=== PATIENT | male | born 1980 | race Caucasian/White ===

== ENCOUNTER 2024-01-09 09:35 | Emergency (ER) | payer OTHER, SELFPAY ==
[2024-01-09 09:41] VITALS: BP 162/98; PULSE 78; RESP 18; TEMP 36.9; O2SAT 97; BMI 41.1
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
[2024-01-09] MEDS: OxyCODONE/APAP 5-325 TABLET 2 TAB PO (09:57)
--- OUTSIDE RECORDS SUMMARY | 2024-01-09 10:17 | XMS_ITS | Encounter Summary ---
Author Organization [facility] Address [address] [place] [address] Care Team Providers Care Network Control Operator Name Role Phone Connie Alvarado APRN PRODUCT DEVELOPMENT SCIENTIST Primary Care Prov ider Connie Alvarado APRN PRODUCT DEVELOPMENT SCIENTIST Unavailable + Connie Alvarado APRN PRODUCT DEVELOPMENT SCIENTIST Unavailable + Seth Sharp MD Unavailable + Connie Alvarado APRN PRODUCT DEVELOPMENT SCIENTIST Unavailable + Seth Sharp MD Unavailable + Jeannine Hyatt Unavailable Unavailable Connie Alvarado APRN PRODUCT DEVELOPMENT SCIENTIST Unavailable + Connie Alvarado APRN PRODUCT DEVELOPMENT SCIENTIST Unavailable + Encounter Details Date Type Department Care Team (Latest Contact Info) Description 10/09/2016 Historic Results Social History Tobacco Use Types Packs/Day Years Used Date Smoking Tobacco: Some Days Smokeless Tobacco: Never Alcohol Use Standard Drinks/Week Comments Yes 0 (1 standard drink = 0.6 oz pur e alcohol) socially Sex and Gender Information Value Date Recorded Sex Assigned at Not on file 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 Gender Identity Not on file Sexual Orientation Not on file documented as of this encounter Plan of Treatment Not on file documented as of this encounter Visit Diagnoses Not on filedocumented in this encounter Additional Health Concerns Assessment Noted Time PHQ-9 Depression Total Score: 14 017 7:17 AM CDT documented as of this encounter Care Teams Network Control Operator Relationship Specialty Start Date End Date Connie Alvarado APRN PRODUCT DEVELOPMENT SCIENTIST PCP - General Nurse Practitioner - Family 01/29/17 Connie Alvarado APRN PRODUCT DEVELOPMENT SCIENTIST [address] [place] [address] PCP - Assigned PCP 10/19/16 05/18/18 Connie Alvarado APRN PRODUCT DEVELOPMENT SCIENTIST [address] [place] [address] Assigned PCP 10/19/16 07/09/19 [place] [address] [place] [address] Assigned PCP 07/10/19 07/23/19 Connie Alvarado APRN PRODUCT DEVELOPMENT SCIENTIST [address] [place] [address] Assigned PCP 07/24/19 08/27/19 [place] [address] [place] [address] Assigned PCP 08/28/19 12/24/19 Jeannine Hyatt Personal Advocate & Liaison (PAL) 12/21/19 03/06/20 Connie Alvarado APRN PRODUCT DEVELOPMENT SCIENTIST [address] [place] [address] Assigned PCP 12/25/19 02/28/22 Connie Alvarado APRN PRODUCT DEVELOPMENT SCIENTIST [address] [place] [address] Assigned PCP 05/10/22 12/19/22 documented as of this encounter
--- OUTSIDE RECORDS SUMMARY | 2024-01-09 10:17 | XMS_ITS | Referral Summary ---
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, unspecified laterality Take 1 capsule (50 mg) by mouth 2 times daily (with meals) 60 capsule 1 0 Active Additional Information Patient not taking.Reported on 07/20/2019 mirtazapine (REMERON) 15 MG tabletIndication s:WALI (generalized anxiety disorder) TAKE ONE TABLET BY MOUTH AT BEDTIME 90 tablet 1 Active escitalopram (LEXAPRO) 20 MG tabletIndication s:Major depressive disorder, single episode, moderate (H),WALI (generalized anxiety disorder) Take 1 tablet (20 mg) by mouth daily NEEDS APPT FOR ADDITIONAL REFILLS 30 tablet 1 Active Active Problems Problem Noted Date Diagnosed Date 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 0 07/06/2019 Morbid obesity 06/07/2017 Major depressive disorder, single episode, moder ate 11/19/2016 Overview (11/19/2016): Quality WALI (generalized anxiety disorder) 11/19/2016 Overview (11/19/2016): quality CARDIOVASCULAR SCREENING; LDL GOAL LESS THAN 160 03/14/2014 Immunizations Name Administration Dates Next Due Historical DTP/aP 06/14/1986, 4,07/14/1982,02/13/1982, 2 MMR 10/11/1993,06/15/1983 Polio, Unspecified 06/14/1986,06/15/1983, 982,1981 TDAP (Adacel,Boostrix) 12/23/2006 Td (Adult), Adsorbed 12/23/2006,07/15/1995 Social History Tobacco Use Types Packs/Day Years Used Date Smoking Tobacco: Former Smokeless Tobacco: Never Alcohol Use Standard Drinks/Week Comments Yes 0 (1 standard drink = 0.6 oz pur e alcohol) socially PHQ-2 Answer Date Recorded PHQ-2 Score 3 12/20/2019 Adolescent Education Answer Date Record ed Getting School Help Needed Not on file 12/20 Sex and Gender Information Value Date Recorded Sex Assigned at Not on file 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 Gender Identity Not on file Sexual Orientation Not on file Last Filed Vital Signs Vital Sign Reading Time Taken Comments Blood Pressure 132/88 08/24/2018 6:16 PM CDT Pulse 68 08/24/2018 6:16 PM CDT Temperature 36.7 ??C (98.1 ??F) 08/24/2018 6:16 PM CD T Respiratory Rate 16 08/24/2018 6:16 PM CDT Oxygen Saturation 97% 08/24/2018 6:16 PM CDT Inhaled Oxygen Concentration - - Weight 140.6 kg (310 lb) 08/24/2018 6:16 PM CDT Height 180.3 cm (5' 11) 08/24/2018 6:16 PM CDT Body Mass Index 43.24 08/24/2018 6:16 PM CDT Plan of Treatment Not on file Insurance MEDICA CHOICE [facility] [employer] OTHER Care Teams Faculty Member Relationship Specialty Start Date End Date Connie Alvarado APRN PRIVATE BRANCH EXCHANGE SERVICE ADVISOR PCP - General Nurse Practitioner - Family 01/29/17
--- OUTSIDE RECORDS SUMMARY | 2024-01-09 10:17 | XMS_ITS | Clinical Summary ---
Author Organization [facility] Address [address] [place] [address] Care Team Providers Care Roller Coaster Engineer Name Role Phone Christiano Connie Lentz APRN LEI MAKER Primary Care Prov ider Allergies No known [...] TDAP (Adacel,Boostrix) 12/23/2006 Td (Adult), Adsorbed 12/23/2006,07/15/1995 Family History Medical History Relation Comments Breast Cancer Maternal Grandfather Heart Disease Maternal Grandfather Breast Cancer Maternal Grandmother Depression Mother Alcohol/Drug Paternal Grandfather Depression Sister Bipolar Relation Status Comments Father Alive Maternal Grandfather Maternal Grandmother Mother Alive Paternal Grandfather Paternal Grandmother Sister Son 1 Alive Son 2 Alive Social History Tobacco Use Types Packs/Day Years [...] on file Legal Sex Male 3:05 AM UPPER DOUBLER Gender Identity Not on file Sexual Orientation [...] Treatment Not on file Insurance MEDICA CHOICE [facility] [employer] OTHER Care Teams Roller Coaster Engineer Relationship Specialty Start Date End Date Connie Alvarado APRN LEI MAKER PCP - General Nurse Practitioner - Family 01/29/17
--- OUTSIDE RECORDS SUMMARY | 2024-01-09 10:17 | XMS_ITS | Encounter Summary ---
Author Organization [facility] Address [address] [place] [address]. [place] [address] Care Team Providers Care Diesel Dragline Operator Name Role Phone Connie Alvarado APRN RIPSAWYER Primary Care Prov ider Connie Alvarado APRN RIPSAWYER Unavailable + Connie Alvarado APRN RIPSAWYER Unavailable + Reason for Visit * Reason Comments Medication Refill Encounter Details Date Type Department Care Team (Late st Contact Info) Description 08/02/[address] [address] Connie Alvarado APRN RIPSAWYER [address] [place], [place] [id number] Medication Refill Social History Tobacco Use Types Packs/Day Years Used Date Smoking Tobacco: Former Smokeless Tobacco: Never Alcohol Use Standard Drinks/Week Comments Yes 0 (1 standard drink = 0.6 oz pur e alcohol) socially PHQ-2 Answer Date Recorded PHQ-2 Score 3 12/20/2019 Sex and Gender Information Value Date Recorded Sex Assigned at Not on file Legal Sex Male 3:05 AM METAL CUT OFF SAW OPERATOR Gender Identity Not on file Sexual Orientation Not on file documented as of this encounter Miscellaneous Notes * Telephone Encounter - Miles Valiente - 08/30/2020 10:03 AM CDT Mailed out letter * Telephone Encounter - Jodi Bansal - 08/23/2020 9:45 AM CDT LVM for pt to schedule OV Jennifer Bansal- [place] Teacher * Telephone Encounter - Connie Alvarado APRN CNP - 08/22/2020 3:01 PM CDT Erica given. Needs appt for additional refills. Needs in person; has not been in clinic since 2019. Connie Alvarado CNP * Telephone Encounter - Markel Frost RN - 08/22/2020 1:31 PM CDT Routing refill request to provider for review/approval because: Labs out of range: PHQ-9 Patient needs to be seen because: Due for f/u w/ PCP Markel Puente RN * Telephone Encounter - Miles Valiente - 08/14/2020 7:38 AM CDT Routing back to rm refills, no appt made * Telephone Encounter - Miles Valiente - 08/07/2020 7:27 AM CDT Mailed out letter * Telephone Encounter - Miles Valiente - 08/02/2020 3:22 PM CDT lvm to call clinic, patient will need to schedule appt for med refills. * Telephone Encounter - Margy Jalloh RN - 08/02/2020 2:15 PM CDT Patient due for a med-check. Will forward to TC's to assist with scheduling. Margy Jalloh RN on 08/02/2020 at 2:16 PM documented in this encounter Plan of Treatment Not on file documented as of this encounter Visit Diagnoses Diagnosis Major depressive disorder, single episode, moderate (H) Major depressive disorder, single episode, moderate WALI (generalized anxiety disorder) Generalized anxiety disorder documented in this encounter Additional Health Concerns Assessment Noted Time PHQ-9 Depression Total Score: 6 12/20/19 2:37 PM CDT documented as of this encounter Care Teams Diesel Dragline Operator Relationship Specialty Start Date End Date Connie Alvarado APRN RIPSAWYER PCP - General Nurse Practitioner - Family 01/29/17 Connie Alvarado APRN RIPSAWYER [address] [place] [address] Assigned PCP 12/25/19 02/28/22 Connie Alvarado APRN RIPSAWYER [address] [place] [place] [address] Assigned PCP 05/10/22 12/19/22 documented as of this encounter
--- OUTSIDE RECORDS SUMMARY | 2024-01-09 10:17 | XMS_ITS | Encounter Summary ---
Author Organization [facility] Address [address] [place] [address]. [place] [address] Care Team Providers Care Winch Operator Name Role Phone Connie Alvarado APRN DECAY CONTROL OPERATOR Primary Care Prov ider Connie Alvaraod APRN DECAY CONTROL OPERATOR Unavailable + Connie Alvarado APRN DECAY CONTROL OPERATOR Unavailable + Reason for Visit * Reason Comments Medication Refill Encounter Details Date Type Department Care Team (Late st Contact Info) Description 08/19/[address] [place] [address] [address] Connie Alvarado APRN DECAY CONTROL OPERATOR [address] [place], [place] [phone] Medication Refill Social History Tobacco Use Types Packs/Day Years Used Date Smoking Tobacco: Former Smokeless Tobacco: Never Alcohol Use Standard Drinks/Week Comments Yes 0 (1 standard drink = 0.6 oz pur e alcohol) socially PHQ-2 Answer Date Recorded PHQ-2 Score 3 12/20/2019 Sex and Gender Information Value Date Recorded Sex Assigned at Not on file 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 Margy Jalloh RN on 08/21/2020 at 11:00 AM documented in this encounter Plan of Treatment Not on file documented as of this encounter Visit Diagnoses Diagnosis WALI (generalized anxiety disorder) Generalized anxiety disorder documented in this encounter Additional Health Concerns Assessment Noted Time PHQ-9 Depression Total Score: 6 12/20/19 20 2:37 PM CDT documented as of this encounter Care Teams Winch Operator Relationship Specialty Start Date End Date Connie Alvarado APRN DECAY CONTROL OPERATOR PCP - General Nurse Practitioner - Family 01/29/17 Connie Alvarado APRN DECAY CONTROL OPERATOR [address] [place] [place] [address] Assigned PCP 12/25/19 02/28/22 Connie Alvarado APRN DECAY CONTROL OPERATOR [address] [address] [place] [address] Assigned PCP 05/10/22 12/19/22 documented as of this encounter
--- OUTSIDE RECORDS SUMMARY | 2024-01-09 10:17 | XMS_ITS | Clinical Summary ---
Author Organization [facility] Address [place], [place] [address] Care Team Providers Care Mid Level Project Manager Name Role Phone Zahra Horvath RN Student Primary Care Provider Unavailable Allergies No known active allergies Medications Medication Sig Dispensed Refills Start Date End Date Status multivitamin (MVI) tablet Take 1 tablet by mouth once daily. Active escitalopram oxalate (LEXAPRO) 20 mg tablet TAKE 1 TABLET (20 MG) BY MOUTH DAILY 05/05/2017 Active Active Problems Problem Noted Date Diagnosed Date Depression 01/07/2018 Lumbar degenerative disc disease 05/21/2011 GERD (gastroesophageal reflux disease) 2 Obesity, unspecified 05/21/2011 Resolved Problems Problem Noted Date Diagnosed Date Resolved Date Acute respiratory insufficiency 05/21/2011 01/07/2018 Social History Tobacco Use Types Packs/Day Years Used Date Smoking Tobacco: Former Cigarettes 0.3 15 Smokeless Tobacco: Current Chew Tobacco Cessation:Counseling Given: No Comments:declined Alcohol Use Standard Drinks/Week Comments Yes 0 (1 standard drink = 0.6 oz pur e alcohol) Social Connections Answer Date Recorded Frequency of Communication with Friends and Fami ly Not on file 03/16/2021 Financial Resource Strain Answer Date R ecorded Difficulty of Paying Living Expenses Not on file 03/16/2021 Difficulty of Paying Living Expenses Not on file 03/16/2021 Sex and Gender Information Value Date Recorded Sex Assigned at Not on file Gender Identity Not on file Sexual Orientation Not on file Obstetrics History Last Filed Vital Signs Vital Sign Reading Time Taken Comments Blood Pressure 120/80 11/03/2019 12:43 PM CDT Pulse 60 11/03/2019 12:43 PM CDT Temperature 36.6 ??C (97.9 ??F) 11/03/2019 1 2:43 PM CDT Respiratory Rate 16 05/24/2011 8:00 AM MANAGER REPORT Oxygen Saturation 97% 02/22/2019 11: 12 AM MANAGER REPORT room air, at rest Inhaled Oxygen Concentration - - Weight 139.3 kg (307 lb 1.6 oz) 11/03/2019 12:43 PM CDT Height 179.1 cm (5' 10.5) 11/03/2019 1 2:43 PM CDT Body Mass Index 43.44 11/03/2019 12:43 PM CDT Plan of Treatment Health Maintenance Due Date Last Done Comments Tdap 1992 Depression screening for age 12+ 1993 HIV for age 15-65 1996 Hepatitis C screening for ag e 18-79 09/22/1999 Tetanus booster 2001 Lipids for age 35-44 2016 BMI (ht and wt on same day) for age 18+ 11/02/2020 11/03/2019, 02/22/2019, 01/07/2018 COVID-19 vaccine series (2023- season) 2023 Influenza for age 9-49 11/15/2023 Pneumococcal series for age 6-64 Aged Out No longer eligible b ased on patient's age to complete this topic Medical Devices Implanted Type Area Lard Tub Washer Device Identifier Shelf Expiration Date Model / Serial / Lot [id number] tty Progenix Dbm 5cc [[id number]] Implanted:Qty: 1 on 05/21/2011 at [facility] Explanted:at [facility] (Quantity not on file) Spine SPINAL GRAFT 10/15/2012 [id number]# / [id number] / Screw Ti Darin 6.5x50mm - [id number] Implanted:Qty: 2 on 05/21/2011 at [facility] N/A: Spine SOFAMOR DANEK [id number] / / Staple Darin Caudal Ti - [id number] Implanted:Qty: 1 on 05/21/2011 at [facility] N/A: Spine SOFAMOR DANEK [id number]# / / Staple Darin Rostral Ti - [id number] Implanted:Qty: 1 on 05/21/2011 at [facility] N/A: Spine SOFAMOR DANEK [id number]# / / Screw Ti Darin 6.5x45mm - [id number] Implanted:Qty: 2 on 05/21/2011 at [facility] N/A: Spine SOFAMOR DANEK [id number]# / / Plate Thoracic 3.0cm Ti - [id number] Implanted:Qty: 1 on 05/21/2011 at [facility] N/A: Spine SOFAMOR DANEK [id number]# / / Lock Nut Ti - [id number] Implanted:Qty: 2 on 05/21/2011 at [facility] N/A: Spine SOFAMOR DANEK [id number]# / / Kit Infuse Sm - [id number] Implanted:Qty: 1 on 05/21/2011 at [facility] Spine SOFAMOR DANEK [id number]# / / [id number] Perimeter Lg 10mm 8 Deg Add-On - [id number] Implanted:Qty: 1 on 05/21/2011 at [facility] Spine SOFAMOR DANEK [id number]# / / [id number] Directives * Full Code (Latest Code Status on File) Date Activated Date Inactivated Comments 05/21/2011 2:39 PM 05/25/2011 4:40 PM * Full Code Date Activated Date Inactivated Comments 05/21/2011 6:24 AM 05/21/2011 2:39 PM Care Teams Mid Level Project Manager Relationship Specialty Start Date End Date Zahra Horvath RN Student PCP - General Registered Nurse 05/19/11
--- OUTSIDE RECORDS SUMMARY | 2024-01-09 10:17 | XMS_ITS | Encounter Summary ---
Author Organization [facility] Address [address] [place] [address]. [place] [address] Care Team Providers Care Parachute Accessories Attacher Name Role Phone Connie Alvarado APRN FARM EQUIPMENT OPERATOR Primary Care Prov ider Seth Sharp MD Unavailable [phone] Jeannine Hyatt Unavailable Unavailable Connie Alvarado APRN FARM EQUIPMENT OPERATOR Unavailable + Connie Alvarado APRN FARM EQUIPMENT OPERATOR Unavailable + Reason for Visit * Reason Comments Medication Refill Encounter Details Date Type Department Care Team (Late st Contact Info) Description 11/02/[address] [phone] [place] [address] [place] [address] Medication Refill Social History Tobacco Use Types Packs/Day Years Used Date Smoking Tobacco: Former Smokeless Tobacco: Never Alcohol Use Standard Drinks/Week Comments Yes 0 (1 standard drink = 0.6 oz pur e alcohol) socially PHQ-2 Answer Date Recorded PHQ-2 Score 0 07/20/2019 Sex and Gender Information Value Date Recorded Sex Assigned at Not on file 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 He will call back to schedule. Summer Piedra MA * Telephone Encounter - Connie Alvarado APRN CNP - 11/03/2019 10:59 AM CDT remeron was added as adjunct in June; he is due for follow up. Sending in 1 month supply; please call to help schedule video appt for recheck. Connie Alvarado CNP * Telephone Encounter - Kati Sullivan RN - 11/02/2019 3:58 PM CDT Routing refill request to provider for review/approval because: PHQ-9 > 4. PHQ 08/24/2018 04/26/2019 07/06/2019 PHQ-9 Total Score 8 1 9 Q9: Thoughts of better off /self-harm past 2 weeks Not at all Not at all Not at all WALI-7 SCORE 08/24/2018 04/26/2019 07/06/2019 Total Score 12 4 14 Kati Sullivan RN documented in this encounter Plan of Treatment Not on file documented as of this encounter Visit Diagnoses Diagnosis Major depressive disorder, single episode, moderate (H) Major depressive disorder, single episode, moderate WALI (generalized anxiety disorder) Generalized anxiety disorder documented in this encounter Additional Health Concerns Assessment Noted Time PHQ-9 Depression Total Score: 9 07/06/19 20 1:40 PM CDT documented as of this encounter Care Teams Parachute Accessories Attacher Relationship Specialty Start Date End Date Connie Alvarado APRN CNP PCP - General Nurse Practitioner - Family 01/29/17 [place] [address] [address] [address] Assigned PCP 08/28/19 12/24/19 Jeannine Hyatt Personal Advocate & Liaison (PAL) 12/21/19 03/06/20 Connie Alvarado APRN FARM EQUIPMENT OPERATOR [address] [address] [address] Assigned PCP 12/25/19 02/28/22 Connie Alvarado APRN FARM EQUIPMENT OPERATOR [address] [address] [address] Assigned PCP 05/10/22 12/19/22 documented as of this encounter
--- OUTSIDE RECORDS SUMMARY | 2024-01-09 10:17 | XMS_ITS | Encounter Summary ---
Author Organization [facility] Address [address] [place] [address]. [place] [address] Care Team Providers Care Jewish History Professor Name Role Phone Connie Alvarado APRN RN INTERNSHIP Primary Care Prov ider Connie Alvarado APRN RN INTERNSHIP Unavailable + Seth Sharp MD Unavailable [phone] Connie Alvarado APRN RN INTERNSHIP Unavailable + Seth Sharp MD Unavailable [phone] Jeannine Hyatt Unavailable Unavailable Connie Alvarado APRN RN INTERNSHIP Unavailable + Connie Alvarado APRN RN INTERNSHIP Unavailable + Reason for Visit * Reason Comments Medication Refill Encounter Details Date Type Department Care Team (Late st Contact Info) Description 04/11/[address] [facility] [id number] [place] [address], [address] [place] [address] [place] [address] [place] [address] Medication Refill Social History Tobacco Use Types Packs/Day Years Used Date Smoking Tobacco: Former Smokeless Tobacco: Never Alcohol Use Standard Drinks/Week Comments Yes 0 (1 standard drink = 0.6 oz pur e alcohol) socially PHQ-2 Answer Date Recorded PHQ-2 Score 1 03/23/2018 Sex and Gender Information Value Date Recorded Sex Assigned at Not on file Legal Sex Male 3:05 AM PLANT OPERATIONS MANAGER Gender Identity Not on file Sexual Orientation Not on file documented as of this encounter Miscellaneous Notes * Telephone Encounter - Hilary Morrow MD - 04/15/2019 3:35 PM PLANT OPERATIONS MANAGER Will refill T OPERATIONS MANAGER * Telephone Encounter - Brittni Marie - 04/14/2019 11:14 AM CST Patient has made phone visit with Dr Sharp for med check, wondering though if he is able to get refill, as really cannot be with out it Brittni Marie/ Yardage Control Operator Forming T OPERATIONS MANAGER * Telephone Encounter - Hilary Morrow MD - 04/14/2019 11:05 AM PLANT OPERATIONS MANAGER A phone visit or in person visit are his options T OPERATIONS MANAGER * Telephone Encounter - Brittni Marie - 04/14/2019 9:28 AM CST Patient does not have mychart to make evisit. I can ask if wants to sign up, but is another option available if does not want to sign up Brittni Marie/ Yardage Control Operator Forming T OPERATIONS MANAGER * Telephone Encounter - Hilary Morrow MD - 04/13/2019 2:54 PM PLANT OPERATIONS MANAGER Ok for Evisit, but needs recheck before continuing T OPERATIONS MANAGER * Telephone Encounter - Willow Lehman RN - 04/13/2019 9:30 AM PLANT OPERATIONS MANAGER Routing refill request to provider for review/approval because: Erica given x1 and patient did not follow up, please advise. PHQ9/GAD7 out of range to fill. Patient was given a 1x refill on 02/19/19 and told to follow up before next refill due. Patient did not call back and make an appointment with provider. PHQ-9 and GAD7 Scores 02/11/2018 08/24/2018 PHQ-9 Total Score 3 8 WALI-7 Total Score 13 12 Willow Lehman RN Flex T OPERATIONS MANAGER documented in this encounter Plan of Treatment Not on file documented as of this encounter Visit Diagnoses Diagnosis Major depressive disorder, single episode, moderate (H) Major depressive disorder, single episode, moderate WALI (generalized anxiety disorder) Generalized anxiety disorder documented in this encounter Additional Health Concerns Assessment Noted Time PHQ-9 Depression Total Score: 8 08/25/19 19 6:36 PM CDT documented as of this encounter Care Teams Jewish History Professor Relationship Specialty Start Date End Date Connie Alvarado APRN RN INTERNSHIP PCP - General Nurse Practitioner - Family 01/29/17 Connie Alvarado APRN RN INTERNSHIP [address] [address] [address] Assigned PCP 10/19/16 07/09/19 [place] [address] [address] [address] Assigned PCP 07/10/19 07/23/19 Connie Alvarado APRN RN INTERNSHIP [address] [address] [address] Assigned PCP 07/24/19 08/27/19 [place] [address] [address] [address] Assigned PCP 08/28/19 12/24/19 Jeannine Hyatt Personal Advocate & Liaison (PAL) 12/21/19 03/06/20 Connie Alvarado APRN RN INTERNSHIP [address] [address] [address] Assigned PCP 12/25/19 02/28/22 Connie Alvarado APRN RN INTERNSHIP [address] [address] [address] Assigned PCP 05/10/22 12/19/22 documented as of this encounter
[2024-01-09 11:10] VITALS: BP 162/98; PULSE 78; RESP 18; TEMP 36.9
== END 2024-01-09 11:10 | disposition home or self-care (01) ==
LOC: ED 10:15
PROVIDERS: Emergency Provider Internal Medicine
DX: S39.012A Strain of muscle, fascia and tendon of lower back, initial encounter (principal); W22.8XXA Striking against or struck by other objects, initial encounter; Y99.0 Civilian activity done for income or pay
CPT/HCPCS: 72131; 99283; 99284; A9270

== ENCOUNTER 2024-01-18 14:04 | Outpatient (CLI) | payer OTHER, SELFPAY ==
--- OUTSIDE RECORDS SUMMARY | 2024-01-18 14:15 | XMS_ITS | Clinical Summary ---
Author Organization [facility] [place], [place] [address] Care Team Providers Care Repack Room Worker Name Role Phone Zahra Horvath RN Student [...] CDT Respiratory Rate 16 05/24/2011 8:00 AM RECEIVABLES SPECIALIST Oxygen Saturation 97% 02/22/2019 11: 12 AM RECEIVABLES SPECIALIST room air, at rest Inhaled Oxygen Concentration [...] this topic Medical Devices Implanted Type Area Cleaning And Maintenance Worker Device Identifier Shelf Expiration Date Model / Serial / Lot [id number] tty Progenix Dbm 5cc [[id number]] Implanted:Qty: 1 on 05/21/[address] [facility] Explanted:at [facility] (Quantity not on file) Spine SPINAL GRAFT 10/15/2012 [id number]# / [id number] / Screw Ti Darin 6.5x50mm - [id number] Implanted:Qty: 2 on 05/21/[address] [facility] N/A: Spine SOFAMOR DANEK [id number]# / / Staple Darin Caudal Ti - [id number] Implanted:Qty: 1 on 05/21/[address] [facility] N/A: Spine SOFAMOR DANEK [id number]# / / Staple Darin Rostral Ti - [id number] Implanted:Qty: 1 on 05/21/[address] [facility] N/A: Spine SOFAMOR DANEK [id number]# / / Screw Ti Darin 6.5x45mm - [id number] Implanted:Qty: 2 on 05/21/[address] [facility] N/A: Spine SOFAMOR DANEK [id number]# / / Plate Thoracic 3.0cm Ti - [id number] Implanted:Qty: 1 on 05/21/[address] [facility] N/A: Spine SOFAMOR DANEK [id number]# / / Lock Nut Ti - [id number] Implanted:Qty: 2 on 05/21/[address] [facility] N/A: Spine SOFAMOR DANEK [id number]# / / Kit Infuse Sm - [id number] Implanted:Qty: 1 on 05/21/[address] [facility] Spine SOFAMOR DANEK [id number]# / / [id number] Perimeter Lg 10mm 8 Deg Add-On - [id number] Implanted:Qty: 1 on 05/21/[address] [facility] Spine SOFAMOR DANEK [id number]# / / [id number] Directives * Full Code (Latest Code Status on File) Date Activated Date Inactivated Comments 05/21/2011 2:39 PM 05/25/2011 4:40 PM * Full Code Date Activated Date Inactivated Comments 05/21/2011 6:24 AM 05/21/2011 2:39 PM Care Teams Repack Room Worker Relationship Specialty Start Date End Date Zahra Horvath RN Student PCP - General Registered Nurse 05/19/11
--- OUTSIDE RECORDS SUMMARY | 2024-01-18 14:15 | XMS_ITS | Encounter Summary ---
Author Organization [facility] Address [address] [place] [address] Care Team Providers Care Zigzagger Name Role Phone Connie Alvarado APRN DIE CASTING MACHINE SETTER Primary Care Prov ider + Connie Alvarado APRN DIE CASTING MACHINE SETTER Unavailable + Connie Alvarado APRN DIE CASTING MACHINE SETTER Unavailable + Seth Sharp MD Unavailable + Connie Alvarado APRN DIE CASTING MACHINE SETTER Unavailable + Seth Sharp MD Unavailable + Jeannine Hyatt Unavailable Unavailable Connie Alvarado APRN DIE CASTING MACHINE SETTER Unavailable + Connie Alvarado APRN DIE CASTING MACHINE SETTER Unavailable + Encounter Details Date Type Department [...] on file 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 Gender Identity Not on file Sexual Orientation Not on file documented as of this encounter Plan of Treatment Not on file documented as of this encounter Visit Diagnoses Not on filedocumented in this encounter Additional Health Concerns Assessment Noted Time PHQ-9 Depression Total Score: 14 017 7:17 AM CDT documented as of this encounter Care Teams Zigzagger Relationship Specialty Start Date End Date Connie Alvarado APRN DIE CASTING MACHINE SETTER PCP - General Nurse Practitioner - Family 01/29/17 Connie Alvarado APRN DIE CASTING MACHINE SETTER [address] [place] [address] PCP - Assigned PCP 10/19/16 05/18/18 Connie Alvarado APRN DIE CASTING MACHINE SETTER [address] [place] [address] Assigned PCP 10/19/16 07/09/19 [place] [address] [place] [address] Assigned PCP 07/10/19 07/23/19 Connie Alvarado APRN DIE CASTING MACHINE SETTER [address] [place] [address] Assigned PCP 07/24/19 08/27/19 [place] [address] [place] [address] Assigned PCP 08/28/19 12/24/19 Jeannine Hyatt Personal Advocate & Liaison (PAL) 12/21/19 03/06/20 Connie Alvarado APRN DIE CASTING MACHINE SETTER [address] [place] [address] Assigned PCP 12/25/19 02/28/22 Connie Alvarado APRN DIE CASTING MACHINE SETTER [address] [place] [address] Assigned PCP 05/10/22 12/19/22 documented as of this encounter
--- OUTSIDE RECORDS SUMMARY | 2024-01-18 14:15 | XMS_ITS | Encounter Summary ---
Author Organization [facility] Address [address] [place] [address]. [place] [address] Care Team Providers Care Readiness Paraprofessional Name Role Phone Connie Alvarado APRN BOX ATTACHER Primary Care Prov ider Connie Alvarado APRN BOX ATTACHER Unavailable + Connie Alvarado APRN BOX ATTACHER Unavailable + Reason for Visit * Reason Comments Medication Refill Encounter Details Date Type Department Care Team (Late st Contact Info) Description 08/19/[address] [address] Connie Alvarado APRN BOX ATTACHER [address] [place], [place] [id number] Medication Refill Social History Tobacco Use Types Packs/Day Years Used Date Smoking Tobacco: Former Smokeless Tobacco: Never Alcohol Use Standard Drinks/Week Comments Yes 0 (1 standard drink = 0.6 oz pur e alcohol) socially PHQ-2 Answer Date Recorded PHQ-2 Score 3 12/20/2019 Sex and Gender Information Value Date Recorded Sex Assigned at Not on file 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 Margy aJlloh RN on 08/21/2020 at 11:00 AM documented in this encounter Plan of Treatment Not on file documented as of this encounter Visit Diagnoses Diagnosis WALI (generalized anxiety disorder) Generalized anxiety disorder documented in this encounter Additional Health Concerns Assessment Noted Time PHQ-9 Depression Total Score: 6 12/20/19 20 2:37 PM CDT documented as of this encounter Care Teams Readiness Paraprofessional Relationship Specialty Start Date End Date Connie Alvarado APRN BOX ATTACHER PCP - General Nurse Practitioner - Family 01/29/17 Connie Alvarado APRN BOX ATTACHER [address] [address] [address] Assigned PCP 12/25/19 02/28/22 Connie Alvarado APRN BOX ATTACHER [address] [address] [address] Assigned PCP 05/10/22 12/19/22 documented as of this encounter
--- OUTSIDE RECORDS SUMMARY | 2024-01-18 14:15 | XMS_ITS | Encounter Summary ---
Author Organization [facility] Address [address] [place] [address]. [place] [address] Care Team Providers Care Administrative Office Specialist Name Role Phone Connie Alvarado APRN TOPOGRAPHIC COMPUTATOR Primary Care Prov ider Connie Alvarado APRN TOPOGRAPHIC COMPUTATOR Unavailable + Connie Alvarado APRN TOPOGRAPHIC COMPUTATOR Unavailable + Reason for Visit * Reason Comments Medication Refill Encounter Details Date Type Department Care Team (Late st Contact Info) Description 08/02/[address] [address] Connie Alvarado APRN TOPOGRAPHIC COMPUTATOR [address] [place], [place] [id number] Medication Refill Social History Tobacco Use Types Packs/Day Years Used Date Smoking Tobacco: Former Smokeless Tobacco: Never Alcohol Use Standard Drinks/Week Comments Yes 0 (1 standard drink = 0.6 oz pur e alcohol) socially PHQ-2 Answer Date Recorded PHQ-2 Score 3 12/20/2019 Sex and Gender Information Value Date Recorded Sex Assigned at Not on file 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 Gender Identity Not on file Sexual Orientation Not on file documented as of this encounter Miscellaneous Notes * Telephone Encounter - Miles Valiente - 08/30/2020 10:03 AM CDT Mailed out letter * Telephone Encounter - Jodi Bansal - 08/23/2020 9:45 AM CDT LVM for pt to schedule OV Jennifer Bansal- [employer] Science Teacher * Telephone Encounter - Connie Alvarado [...] documented as of this encounter Care Teams Administrative Office Specialist Relationship Specialty Start Date End Date Connie Alvarado APRN TOPOGRAPHIC COMPUTATOR PCP - General Nurse Practitioner - Family 01/29/17 Connie Alvarado APRN TOPOGRAPHIC COMPUTATOR [address] [address] [address] Assigned PCP 12/25/19 02/28/22 Connie Alvarado APRN TOPOGRAPHIC COMPUTATOR [address] [address] [address] Assigned PCP 05/10/22 12/19/22 documented as of this encounter
--- OUTSIDE RECORDS SUMMARY | 2024-01-18 14:15 | XMS_ITS | Encounter Summary ---
Author Organization [facility] Address [address] [place] [address]. [place] [address] Care Team Providers Care Mri Specialist Name Role Phone Connie Alvarado APRN TONGUE STITCHER Primary Care Prov ider Connie Alvarado APRN TONGUE STITCHER Unavailable + Seth Sharp MD Unavailable [phone] Connie Alvarado APRN TONGUE STITCHER Unavailable + Seth Sharp MD Unavailable [phone] Jeannine Hyatt Unavailable Unavailable Connie Alvarado APRN TONGUE STITCHER Unavailable + Connie Alvarado APRN TONGUE STITCHER Unavailable + Reason for Visit * Reason Comments Medication Refill Encounter Details Date Type Department Care Team (Late st Contact Info) Description 04/11/2019 Refill [facility] [id number] [address], [address] [place] [address] [place] [address] [place] [address] Medication Refill Social History Tobacco Use Types Packs/Day Years Used Date Smoking Tobacco: Former Smokeless Tobacco: Never Alcohol Use Standard Drinks/Week Comments Yes 0 (1 standard drink = 0.6 oz pur e alcohol) socially PHQ-2 Answer Date Recorded PHQ-2 Score 1 03/23/2018 Sex and Gender Information Value Date Recorded Sex Assigned at Not on file Legal Sex Male 3:05 AM SURGERY MANAGER Gender Identity Not on file Sexual Orientation Not on file documented as of this encounter Miscellaneous Notes * Telephone Encounter - Hilary Morrow MD - 04/15/2019 3:35 PM SURGERY MANAGER Will refill ERY MANAGER * Telephone Encounter - Brittni Marie - 04/14/2019 11:14 AM CST Patient has made phone visit with Dr Sharp for med check, wondering though if he is able to get refill, as really cannot be with out it Brittni Marie/ Hospital Scientist ERY MANAGER * Telephone Encounter - Hilary Morrow MD - 04/14/2019 11:05 AM SURGERY MANAGER A phone visit or in person visit are his options ERY MANAGER * Telephone Encounter - Brittni Marie - 04/14/2019 9:28 AM CST Patient does not have mychart to make evisit. I can ask if wants to sign up, but is another option available if does not want to sign up Brittni Marie/ Hospital Scientist ERY MANAGER * Telephone Encounter - Hilary Morrow MD - 04/13/2019 2:54 PM SURGERY MANAGER Ok for Evisit, but needs recheck before continuing ERY MANAGER * Telephone Encounter - Willow Lehman RN - 04/13/2019 9:30 AM SURGERY MANAGER Routing refill request to provider for [...] Score 13 12 Willow Lehman RN Flex ERY MANAGER documented in this encounter Plan of [...] documented as of this encounter Care Teams Mri Specialist Relationship Specialty Start Date End Date Connie Alvarado APRN TONGUE STITCHER PCP - General Nurse Practitioner - Family 01/29/17 Connie Alvarado APRN TONGUE STITCHER [address] [address] [address] Assigned PCP 10/19/16 07/09/19 [place] [address] [address] [address] Assigned PCP 07/10/19 07/23/19 Connie Alvarado APRN TONGUE STITCHER [address] [address] [address] Assigned PCP 07/24/19 08/27/19 [place] [address] [address] [address] Assigned PCP 08/28/19 12/24/19 Jeannine Hyatt Personal Advocate & Liaison (PAL) 12/21/19 03/06/20 Connie Alvarado APRN TONGUE STITCHER [address] [address] [address] Assigned PCP 12/25/19 02/28/22 Connie Alvarado APRN TONGUE STITCHER [address] [address] [address] Assigned PCP 05/10/22 12/19/22 documented as of this encounter
--- OUTSIDE RECORDS SUMMARY | 2024-01-18 14:15 | XMS_ITS | Referral Summary ---
Author Organization [facility] Address [address] [place] [address] Care Team Providers Care Director Of Entertainment Name Role Phone Christiano Connie Lentz APRN DIRECTOR REGULATORY COMPLIANCE Primary Care Prov ider Allergies No known [...] on file Legal Sex Male 3:05 AM GLOVE PARTS INSPECTOR Gender Identity Not on file Sexual Orientation [...] Treatment Not on file Insurance MEDICA CHOICE [facility] ADMINISTRATORS OTHER Care Teams Director Of Entertainment Relationship Specialty Start Date End Date Connie Alvarado APRN DIRECTOR REGULATORY COMPLIANCE PCP - General Nurse Practitioner - Family 01/29/17
--- OUTSIDE RECORDS SUMMARY | 2024-01-18 14:15 | XMS_ITS | Encounter Summary ---
Author Organization [facility] Address [address] [place] [address]. [place] [address] Care Team Providers Care Gameplay Engineer Name Role Phone Connie Alvarado APRN CONTROL CLERK REPAIRS Primary Care Prov ider Seth Sharp MD Unavailable [phone] Jeannine Hyatt Unavailable Unavailable Connie Alvarado APRN CONTROL CLERK REPAIRS Unavailable + Connie Alvarado APRN CONTROL CLERK REPAIRS Unavailable + Reason for Visit * Reason Comments Medication Refill Encounter Details Date Type Department Care Team (Late st Contact Info) Description 11/02/[address] [phone] [place] [address] [place] [address] Medication Refill Social History Tobacco Use Types Packs/Day Years Used Date Smoking Tobacco: Former Smokeless Tobacco: Never Alcohol Use Standard Drinks/Week Comments Yes 0 (1 standard drink = 0.6 oz pur e alcohol) socially PHQ-2 Answer Date Recorded PHQ-2 Score 0 07/20/2019 Sex and Gender Information Value Date Recorded Sex Assigned at Not on file Legal Sex Male 3:05 AM PROFESSOR OF PSYCHOLOGY Gender Identity Not on file Sexual Orientation Not on file documented as of this encounter Miscellaneous Notes * Telephone Encounter - Summer Piedra, CONDUIT CLEANER - 11/03/2019 11:20 AM CDT Called patient [...] documented as of this encounter Care Teams Gameplay Engineer Relationship Specialty Start Date End Date Connie Alvarado APRN CNP PCP - General Nurse Practitioner - Family 01/29/17 [place] [address] [address] [address] Assigned PCP 08/28/19 12/24/19 Jeannine Hyatt Personal Advocate & Liaison (PAL) 12/21/19 03/06/20 Connie Alvarado APRN CONTROL CLERK REPAIRS [address] [address] [address] Assigned PCP 12/25/19 02/28/22 Connie Alvarado APRN CONTROL CLERK REPAIRS [address] [address] [address] Assigned PCP 05/10/22 12/19/22 documented as of this encounter
--- OUTSIDE RECORDS SUMMARY | 2024-01-18 14:15 | XMS_ITS | Clinical Summary ---
Author Organization [facility] Address [address] [place] [address] Care Team Providers Care Precision Agriculture Specialist Name Role Phone Christiano Connie Lentz APRN, CNP Primary Care Prov ider Allergies No known [...] on file Legal Sex Male 3:05 AM VENTURE CAPITAL ANALYST Gender Identity Not on file Sexual Orientation [...] Treatment Not on file Insurance MEDICA CHOICE [facility] ADMINISTRATORS OTHER Care Teams Precision Agriculture Specialist Relationship Specialty Start Date End Date Connie Alvarado APRN PROJECT ASSOCIATE PCP - General Nurse Practitioner - Family 01/29/17
--- NOTE | 2024-01-18 14:30 | CRLHL7_ITS ---
For Patients: As a result of the Century Cures Act, medical imaging exams and procedure reports are released immediately into your electronic medical record. You may view this report before your referring provider. If you have questions, please contact your health care provider. INDICATION: Mid to low back pain. COMPARISON: 01/09/2024 and 12/23/2017. Technique lumbar cortical. FINDINGS: Normal vertebral body alignment. No fractures. No vertebral body loss of height. No spondylolisthesis. Compared to the most recent CT, stable postoperative changes of diskectomy interbody fusion L1-2. Left unilateral vertebral body plate screw fixation. Associated artifact. No suspicious osseous lesions. Normal conus terminates at L1. T12-L1: No spinal canal neural foraminal narrowing. L1-2: Postoperative changes. No spinal canal or neural foraminal narrowing. L2-3: No spinal canal or neural foraminal narrowing. L3-4: No spinal canal neural foraminal narrowing. L4-5: No spinal canal or neural foraminal narrowing. L5-S1: Annular bulge. No narrowing of spinal canal. No impingement of the traversing S1 nerve roots. Mild narrowing of the bilateral foramina. Mild facet arthropathy. Normal visualized SI joints. Normal paraspinal soft tissues. IMPRESSION: 1. Normal alignment. No fractures. 2. Stable postoperative changes L1-2. Associated artifact. 3. At L5-S1, annular bulging. No narrowing of the spinal canal. Mild narrowing of the bilateral neural foramina 4. No spinal canal or neural foraminal narrowing at the remaining levels Dictated by Adolfo Fried MD @ 01/19/2024 10:26:47 AM (Electronically Signed)
== END 2024-01-18 14:05 | disposition home or self-care (01) ==
PROVIDERS: Visit Provider Internal Medicine
DX: M54.50 Low back pain, unspecified (principal); M51.27 Other intervertebral disc displacement, lumbosacral region
CPT/HCPCS: 72148